=== PATIENT | female | born 1965 | race Caucasian/White ===

== ENCOUNTER → 2021-05-10 10:48 | Outpatient (CLI) | payer BC, SELFPAY ==
--- NOTE | 2021-05-10 | DI.MG.S_ITS ---
BILATERAL DIGITAL SCREENING MAMMOGRAM 3D/2D WITH CAD: 05/10/2021 CLINICAL: Routine screening. Comparison is made to exams dated: 01/20/2020 mammogram, 01/29/2019 mammogram, and 12/25/2017 mammogram - outside location. There are scattered fibroglandular elements in both breasts. Current study was also evaluated with a Computer Aided Detection (CAD) system. There is a possible developing high density asymmetry in the right breast middle depth superior region seen on the mediolateral oblique view only. This is more prominent. There is a developing irregular equal density asymmetry in the left breast at 1 o'clock middle depth. No other significant masses or calcifications are seen in either breast. IMPRESSION: INCOMPLETE: NEEDS ADDITIONAL IMAGING EVALUATION The possible developing high density asymmetry in the right breast middle depth superior region seen on the mediolateral oblique view only is indeterminate. Additional views with possible ultrasound are recommended. The developing irregular equal density asymmetry in the left breast at 1 o'clock middle depth is indeterminate. Additional views with possible ultrasound are recommended. This exam was interpreted at Station ID: [id number]. NOTE: For mammograms, a report in lay terms will be sent to the patient. Approximately 15% of breast malignancies will not be visualized mammographically. In the management of a palpable breast mass, a negative mammogram must not discourage biopsy of a clinically suspicious lesion. Electronically Signed By: Meri zavala/mame:05/10/2021 13:27:08 copy to: Brianda Obrien copy to: Brianda Michelle, [facility], ph: [phone], fax: [phone] letter sent: Additional Imaging Needed ACR BI-RADS Category 0: Incomplete 3340F
--- NOTE | 2021-05-10 11:08 | DI.CT.S_ITS ---
PROCEDURE: CT SINUS SCREEN WO CON INDICATIONS: Chronic frontal sinusitis TECHNIQUE: Noncontrast 3.0 mm axial images acquired from the frontal sinuses to the mid-sella, with coronal and sagittal reformats. For radiation dose reduction, the following was used: automated exposure control, adjustment of mA and/or kV according to patient size. COMPARISON: None. FINDINGS: Image quality: Excellent. Sinuses: There is minimal scattered mucosal thickening within the bilateral maxillary, sphenoid and ethmoid sinuses. Frontal sinuses are clear. No fluid levels are identified. Ostiomeatal Complexes: Ostiomeatal complexes are patent. No Thomas cells. Miscellaneous: Visualized intra-orbital contents are normal. No dawn bullosa or paradoxical turbinate curvature. No nasal septal deviation. IMPRESSION: 1. Minimal scattered mucosal thickening as above without fluid levels. Dictated by: Rena Knox M.D. on 05/10/2021 at 16:38 Approved by: Rena Knox M.D. on 05/10/2021 at 16:40
== END ==
PROVIDERS: PCP Physician Assistant; Referring Provider Family Medicine; Visit Provider Family Medicine
DX: Z12.31 Encounter for screening mammogram for malignant neoplasm of breast (principal); J32.1 Chronic frontal sinusitis
CPT/HCPCS: 70486; 77063; 77067

== ENCOUNTER → 2021-06-16 12:00 | Outpatient (CLI) | payer BC, SELFPAY ==
--- NOTE | 2021-06-16 12:02 | DI.US.S_ITS ---
ULTRASOUND OF RIGHT BREAST: 06/16/2021 CLINICAL: Patient returns today to evaluate a focal asymmetry in the right breast. Comparison is made to exams dated: 06/16/2021 mammogram, 05/10/2021 mammogram - [facility], 04/08/2020 ultrasound, 01/20/2020 mammogram, 02/06/2019 ultrasound, and 01/29/2019 mammogram - outside location. Color flow and real-time ultrasound of the right breast were performed. Roy scale images of the real-time examination were reviewed. There is an incidental 0.4 cm oval cyst in the right breast at 12 o'clock middle depth 3 cm from the nipple. This oval cyst is anechoic. Color flow imaging demonstrates that there is no vascularity present. Otherwise, no sonographic abnormalities seen in the right breast. IMPRESSION: BENIGN There is no sonographic evidence of malignancy. The incidental 0.4 cm oval simple cyst in the right breast is benign. A 1 year screening mammogram is recommended. Findings and recommendations were conveyed to the patient during today's evaluation. This exam was interpreted at Station ID: [id number]. Electronically Signed By: Sky Jack M.D. aty/:06/16/2021 14:54:14 copy to: Brianda Obrien copy to: Brianda Michelle, [facility], ph: [phone], fax: [phone] letter sent: Normal Exam Ultrasound BI-RADS: 2 Benign
--- NOTE | 2021-06-16 12:02 | DI.US.S_ITS ---
ULTRASOUND OF LEFT BREAST: 06/16/2021 CLINICAL: Patient returns today to evaluate a focal asymmetry in the left breast. Comparison is made to exams dated: 06/16/2021 mammogram, 05/10/2021 mammogram - [facility], 04/08/2020 ultrasound, 01/20/2020 mammogram, 02/06/2019 ultrasound, and 01/29/2019 mammogram - outside location. Color flow and real-time ultrasound of the left breast were performed. Roy scale images of the real-time examination were reviewed. There is an incidental oval cyst in the left breast at 12 o'clock middle depth measuring 0.4cm in size. This oval cyst is hypoechoic. Color flow imaging demonstrates that there is no vascularity present. Otherwise, no sonographic abnormalities seen in the left breast. IMPRESSION: BENIGN There is no sonographic evidence of malignancy. The incidental simple oval cyst in the left breast is benign. A 1 year screening mammogram is recommended. Findings and recommendations were conveyed to the patient during today's evaluation. This exam was interpreted at Station ID: [id number]. Electronically Signed By: Sky Jack M.D. aty/:06/16/2021 14:51:56 Entry: - 06/19/2021 08:37:35 copy to: Brianda Obrien copy to: Brianda Michelle, [facility], ph: [phone], fax: [phone] Ultrasound BI-RADS: 2 Benign
--- NOTE | 2021-06-16 12:02 | DI.MG.S_ITS ---
BILATERAL DIGITAL DIAGNOSTIC MAMMOGRAM 3D/2D WITH ADDITIONAL VIEWS: 06/16/2021 CLINICAL: Additional evaluation requested from prior study. Comparison is made to exams dated: 05/10/2021 mammogram - [facility], 01/20/2020 mammogram, and 01/29/2019 mammogram - outside location. There are scattered fibroglandular elements in both breasts. The possible developing high density asymmetry in the right breast middle depth superior region seen on the mediolateral oblique view only is not reproduced and presumably represented superimposed breast tissue. The developing irregular equal density asymmetry in the left breast at 1 o'clock middle depth is no longer seen, dispersing with additional views and is consistent with summation artifact. No other significant masses or calcifications are seen in either breast. IMPRESSION: INCOMPLETE: NEEDS ADDITIONAL IMAGING EVALUATION The previously described right breast asymmetry disperses with additional views and is consistent with summation artifact. The previously described left focal asymmetry disperses with additional views and is also consistent with summation artifact. However, given increased density of fibroglandular tissue in these areas, an ultrasound of the bilateral breasts is recommended to confirm no underlying suspicious findings. This is scheduled to immediately follow this exam. This exam was interpreted at Station ID: [id number]. NOTE: For mammograms, a report in lay terms will be sent to the patient. Approximately 15% of breast malignancies will not be visualized mammographically. In the management of a palpable breast mass, a negative mammogram must not discourage biopsy of a clinically suspicious lesion. Electronically Signed By: Sky Jack M.D. aty/:06/16/2021 14:49:04 copy to: Brianda Obrien copy to: Brianda Michelle, [facility], ph: [phone], fax: [phone] ACR BI-RADS Category 0: Incomplete [id number]
== END ==
PROVIDERS: PCP Physician Assistant; Referring Provider Physician Assistant; Visit Provider Physician Assistant
DX: R92.8 Other abnormal and inconclusive findings on diagnostic imaging of breast (principal); N60.02 Solitary cyst of left breast; N60.01 Solitary cyst of right breast
CPT/HCPCS: 76642; 77066; G0279

== ENCOUNTER → 2021-06-21 10:32 | Outpatient (CLI) | payer BC, SELFPAY ==
[2021-06-21 19:40] LABS: Cholesterol 142 mg/dL (140-199); HDL Cholesterol 43 mg/dL (40-60); LDL Cholesterol Calculated 72 mg/dL (<100); Triglycerides 134 mg/dL (35-150)
== END ==
PROVIDERS: PCP Physician Assistant; Visit Provider Physician Assistant
DX: Z13.220 Encounter for screening for lipoid disorders (principal)
CPT/HCPCS: 80061

== ENCOUNTER → 2022-02-02 15:49 | Outpatient (CLI) | payer OTHER, SELFPAY ==
[2022-02-05 19:56] LABS: Free T3, Triiodothyronine Free 3.16 pg/mL (2.77-5.27)
[2022-02-05 20:10] LABS: TSH w/ Reflex to FT4 0.55 uIU/mL (0.47-4.68)
[2022-02-05 20:20] LABS: COVID19 - ORCAS (NP or Nasal) Negative (Negative)
== END ==
PROVIDERS: PCP Physician Assistant; Visit Provider Physician Assistant Medical
DX: Z20.822 Contact with and (suspected) exposure to COVID-19; R22.1 Localized swelling, mass and lump, neck
CPT/HCPCS: 84443; 84481; U0003

== ENCOUNTER → 2022-07-03 10:33 | Outpatient (CLI) | payer OTHER, SELFPAY ==
--- NOTE | 2022-07-03 10:35 | DI.US.S_ITS ---
PROCEDURE: US SOFT TISSUE HEAD AND NECK INDICATIONS: anterior neck fullness TECHNIQUE: Real-time scanning was performed of the neck region of interest, with image documentation. COMPARISON: None. FINDINGS: Scanning is performed at the areas of clinical concern. No masses are seen. Several small lymph nodes are seen within the right submandibular region measuring 7 x 6 x 7 mm and 5 x 4 x 4 mm, respectively. IMPRESSION: Lymph nodes are seen, which demonstrate normal size. No masses are seen. Dictated by: Primitivo Encinas M.D. on 07/03/2022 at 11:04 Approved by: Primitivo Encinas M.D. on 07/03/2022 at 11:04
== END ==
PROVIDERS: PCP Physician Assistant; Referring Provider Physician Assistant; Visit Provider Physician Assistant
DX: R22.1 Localized swelling, mass and lump, neck (principal)
CPT/HCPCS: 76536

== ENCOUNTER → 2022-10-15 12:01 | Outpatient (CLI) | payer OTHER, SELFPAY ==
[2022-10-15 19:49] LABS: Add Manual Diff / Slide Review NO; Basophils Absolute Auto 0 /uL (0-100); Basophils Percent Auto 0.5 % (0-2); Eosinophils Absolute Auto 300 /uL (0-450); Eosinophils Percent Auto 3.4 % (2-4); Hematocrit 40.5 % (36-46); Hemoglobin 13.7 g/dL (12.0-16.0); Lymphocytes Absolute Auto 2500 /uL (1100-4500); Lymphocytes Percent Auto 33.8 % (25-40); Mean Corpuscular HGB Conc 33.9 % (30-36); Mean Corpuscular Hemoglobin 30.6 PG (26-34); Mean Corpuscular Volume 90.3 fL (80-100); Monocytes Absolute Auto 700 /uL (0-900); Monocytes Percent Auto 9.6 % (3-14); Neutrophils Absolute Auto 3900 /uL (1500-7000); Neutrophils Percent Auto 52.7 % (50-75); Platelet Count 316 X10^3/uL (150-400); Red Blood Cell Count 4.48 X10^6/uL (4.0-5.2); White Blood Cell Count 7.5 X10^3/uL (4.5-11.0)
[2022-10-15 20:07] LABS: Alanine Aminotransferase 33 IU/L (<35); Albumin 4.9 g/dL (3.5-5.0); Albumin Globulin Ratio 1.5 (1.0-2.8); Alkaline Phosphatase 76 U/L (38-126); Aspartate Aminotransferase 35 IU/L (14-36); BUN Creatinine Ratio 23.6 (6-22); Bilirubin Total 0.6 mg/dL (0.2-1.3); Blood Urea Nitrogen 17 mg/dL (7-17); Calcium 9.5 mg/dL (8.4-10.2); Carbon Dioxide 25 mmol/L (22-32); Chloride 103 mmol/L (98-107); Cholesterol 133 mg/dL (140-199); Estimated Glomerular Filt Rate > 60 mL/min (>60); Globulin 3.2 g/dL (1.7-4.1); Glucose 84 mg/dL (70-100); HDL Cholesterol 44 mg/dL (40-60); HEMOLYSIS 26 (0-50); LDL Cholesterol Calculated 70 mg/dL (<100); Potassium 5.1 mmol/L (3.4-5.1); Sodium 140 mmol/L (137-145); Total Protein 8.1 g/dL (6.3-8.2); Triglycerides 94 mg/dL (35-150)
[2022-10-15 20:39] LABS: TSH w/ Reflex to FT4 2.25 uIU/mL (0.47-4.68)
== END ==
PROVIDERS: PCP Physician Assistant; Visit Provider Physician Assistant
DX: Z13.6 Encounter for screening for cardiovascular disorders (principal); I10 Essential (primary) hypertension; R63.5 Abnormal weight gain
CPT/HCPCS: 80053; 80061; 84443; 85025

== ENCOUNTER → 2022-11-29 10:44 | Outpatient (CLI) | payer OTHER, SELFPAY ==
--- NOTE | 2022-11-29 10:46 | DI.MG.S_ITS ---
BILATERAL DIGITAL SCREENING MAMMOGRAM 3D/2D WITH CAD: 11/29/2022 CLINICAL: Routine screening. Comparison is made to exams dated: 06/16/2021 ultrasound, 06/16/2021 mammogram, 05/10/2021 mammogram, and 06/16/2021 ultrasound - [facility]. There are scattered areas of fibroglandular density in both breasts (category b / 25%-50% glandular tissue). Current study was also evaluated with a Computer Aided Detection (CAD) system. There is a possible asymmetry in the left breast middle depth central to the nipple seen on the craniocaudal view only. There is architectural distortion associated with the asymmetry. No other significant masses, calcifications, or other findings are seen in either breast. IMPRESSION: INCOMPLETE: NEEDS ADDITIONAL IMAGING EVALUATION The possible asymmetry in the left breast is indeterminate. Additional views with possible ultrasound are recommended. Based on the Tyrer Cuzick model (a risk assessment model) the patient's lifetime risk is 9.2% and her 10 year risk is 3.6%. According to the ACR, ACS, and NCCN guidelines, an annual breast MRI exam along with mammogram is recommended if the patient's lifetime risk is 20% or greater. This exam was interpreted at Station ID: [id number]. NOTE: For mammograms, a report in lay terms will be sent to the patient. Approximately 15% of breast malignancies will not be visualized mammographically. In the management of a palpable breast mass, a negative mammogram must not discourage biopsy of a clinically suspicious lesion. Electronically Signed By: Sai Newsome M.D., jr/mame:11/29/2022 12:15:01 copy to: Brianda Obrien copy to: Brianda Michelle, [facility], ph: [phone], fax: [phone] letter sent: Additional Imaging Needed ACR BI-RADS Category 0: Incomplete 3340F
== END ==
PROVIDERS: PCP Physician Assistant; Referring Provider Physician Assistant; Visit Provider Physician Assistant
DX: Z12.31 Encounter for screening mammogram for malignant neoplasm of breast (principal)
CPT/HCPCS: 77063; 77067

== ENCOUNTER → 2022-12-27 11:52 | Outpatient (CLI) | payer OTHER, SELFPAY ==
--- NOTE | 2022-12-27 11:55 | DI.US.S_ITS ---
LIMITED ULTRASOUND OF LEFT BREAST: 12/27/2022 CLINICAL: ADD VIEWS LEFT BREAST. Comparison is made to exams dated: 12/27/2022 mammogram, 11/29/2022 mammogram, and 06/16/2021 [facility]. Color flow ultrasound of the left breast 1 o'clock region was performed. Roy scale images of the real-time examination were reviewed. No significant abnormalities were seen sonographically in the left breast. Specifically, no finding to correspond to the patient's screening mammographic abnormality. IMPRESSION: PROBABLY BENIGN No sonographic correlate to mammographic finding. A follow-up left mammogram and possible ultrasound in 6 months is recommended to demonstratemammographic stablility of the left breast. Findings and recommendations were conveyed to the patient at time of exam. This exam was interpreted at Station ID: [id number]. Electronically Signed By: Meri zavala/:12/27/2022 12:52:10 copy to: Brianda Obrien copy to: Brianda Michelle, [facility], ph: [phone], fax: [phone] letter sent: Followup Recommended Ultrasound BI-RADS: 3 Probably benign
--- NOTE | 2022-12-27 11:55 | DI.MG.S_ITS ---
UNILATERAL LEFT DIGITAL DIAGNOSTIC MAMMOGRAM 3D/2D WITH ADDITIONAL VIEWS: 12/27/2022 CLINICAL: Additional evaluation requested from prior study. Comparison is made to exams dated: 11/29/2022 mammogram, 06/16/2021 mammogram, and 05/10/2021 mammogram - [facility]. There are scattered areas of fibroglandular density in the left breast (category b / 25%-50% glandular tissue). There is a possible 9 mm irregular asymmetry with a spiculated margin in the left breast at 1 o'clock posterior depth. This is seen in additional views. There is possible architectural distortion associated with the asymmetry. No other significant masses or calcifications are seen in the breast. IMPRESSION: INCOMPLETE: NEEDS ADDITIONAL IMAGING EVALUATION The possible 9 mm irregular asymmetry in the left breast is confirmed with special views, but remains indeterminate. An ultrasound is recommended. This was performed immediately following this exam. Based on the Tyrer Cuzick model (a risk assessment model) the patient's lifetime risk is 9.2% and her 10 year risk is 3.6%. According to the ACR, ACS, and NCCN guidelines, an annual breast MRI exam along with mammogram is recommended if the patient's lifetime risk is 20% or greater. This exam was interpreted at Station ID: [id number]. NOTE: For mammograms, a report in lay terms will be sent to the patient. Approximately 15% of breast malignancies will not be visualized mammographically. In the management of a palpable breast mass, a negative mammogram must not discourage biopsy of a clinically suspicious lesion. Electronically Signed By: Meri zavala/:12/27/2022 12:16:05 copy to: Brianda Obrien copy to: Brianda Michelle, [facility], ph: [phone], fax: [phone] ACR BI-RADS Category 0: Incomplete [id number]
== END ==
PROVIDERS: PCP Physician Assistant; Referring Provider Physician Assistant; Visit Provider Physician Assistant
DX: R92.8 Other abnormal and inconclusive findings on diagnostic imaging of breast (principal)
CPT/HCPCS: 76642; 77065; G0279

== ENCOUNTER → 2023-06-26 11:15 | Outpatient (CLI) | payer OTHER, SELFPAY ==
--- NOTE | 2023-06-26 11:16 | DI.MG.S_ITS ---
UNILATERAL LEFT DIGITAL DIAGNOSTIC MAMMOGRAM 3D/2D SHORT-TERM FOLLOW-UP: 06/26/2023 CLINICAL: Short term follow up for the left breast. Comparison is made to exams dated: 12/27/2022 mammogram, 11/29/2022 mammogram, 06/16/2021 mammogram, and 05/10/2021 mammogram - [facility]. There are scattered areas of fibroglandular density in the left breast (category b / 25%-50% glandular tissue). The asymmetry in the left breast middle depth central to the nipple seen on the prior screening craniocaudal view only is not seen in additional views. No other significant masses or calcifications are seen in the breast. IMPRESSION: BENIGN The left breast asymmetry seen on the prior screening mammogram likely respresents superimposed fibroglandular tissue and is benign. There is no mammographic evidence of malignancy. Return to annual mammogram screening schedule is recommended. Based on the Tyrer Cuzick model (a risk assessment model) the patient's lifetime risk is 9.2% and her 10 year risk is 3.6%. According to the ACR, ACS, and NCCN guidelines, an annual breast MRI exam along with mammogram is recommended if the patient's lifetime risk is 20% or greater. This exam was interpreted at Station ID: [id number]. NOTE: For mammograms, a report in lay terms will be sent to the patient. Approximately 15% of breast malignancies will not be visualized mammographically. In the management of a palpable breast mass, a negative mammogram must not discourage biopsy of a clinically suspicious lesion. Electronically Signed By: Amelie Damico M.D. lk/:06/26/2023 11:49:54 copy to: Brianda Obrien copy to: Brianda Michelle, [facility], ph: [phone], fax: [phone] letter sent: Normal Exam ACR BI-RADS Category 2: Benign Finding(s) 3344O
== END ==
PROVIDERS: PCP Physician Assistant; Referring Provider Physician Assistant; Visit Provider Physician Assistant
DX: R92.8 Other abnormal and inconclusive findings on diagnostic imaging of breast (principal)
CPT/HCPCS: 77065; G0279

== ENCOUNTER → 2023-07-09 12:49 | Outpatient (CLI) | payer OTHER, SELFPAY | PROVIDERS: PCP Physician Assistant; Visit Provider Physician Assistant | DX: R30.0 Dysuria (principal) | CPT/HCPCS: 87086 ==

== ENCOUNTER 2023-07-16 10:20 | Emergency (ER) | payer OTHER, SELFPAY ==
[2023-07-16 10:23] VITALS: PULSE 58; O2SAT 99
[2023-07-16 10:24] VITALS: BP 131/60; PULSE 60; O2SAT 99
[2023-07-16 10:30] VITALS: BP 125/59; PULSE 63; O2SAT 98
[2023-07-16 10:33] VITALS: BP 125/59; PULSE 60; RESP 18; TEMP 36.7; O2SAT 99; BMI 28.7
--- NOTE | 2023-07-16 10:36 | DI.RAD.S_ITS ---
PROCEDURE: XR LUMBAR SPINE 2-3V INDICATIONS: FALL WITH LOW BACK PAIN TECHNIQUE: 3 views of the lumbar spine were acquired. COMPARISON: None. FINDINGS: Bones: 5 [id number] vertebrae are present. There is ill-defined linear opacity along the superior endplate at L5. No vertebral body compression fractures. No suspicious bony lesions. Soft tissues: Overlying bowel gas pattern is normal. No suspicious soft tissue calcifications. IMPRESSION: Ill-defined L5 superior endplate linear opacity. Fracture cannot be excluded. If concern persists, CT is recommended. Dictated by: Rena Knox M.D. on 07/16/2023 at 11:57 Approved by: Rena Knox M.D. on 07/16/2023 at 11:58
--- NOTE | 2023-07-16 10:55 | DI.RAD.S_ITS ---
PROCEDURE: XR SACRUM COCCYX MIN 2V INDICATIONS: FALL WITH LOW BACK AND TAILBONE PAIN TECHNIQUE: 3 views of the sacrum and coccyx acquired. COMPARISON: None. FINDINGS: Bones: Superior endplate L5 lucency. No suspicious bony lesions. Soft tissues: Visualized bowel gas pattern is normal. No suspicious soft tissue densities. IMPRESSION: Superior L5 endplate lucency. Fracture cannot be excluded. Please see x-ray lumbar spine for further details. Dictated by: Rena Knox M.D. on 07/16/2023 at 11:58 Approved by: Rena Knox M.D. on 07/16/2023 at 11:59
--- NOTE | 2023-07-16 11:17 | ED_ITS ---
HPI - Fall <Vivian Escobedo PA-C - Last Filed: 07/16/23 15:33> General Chief Complaint: Fall Stated Complaint: GLF Time Seen by Provider: 07/16/23 11:00 Source: patient and EMS Mode of arrival: EMS History of Present Illness HPI Narrative: 57-year-old female with past medical history hypothyroidism, hypertension, hyperlipidemia presents to the ED status post a mechanical fall sustained just prior to arrival. Patient states that she suffered a mechanical fall when she tripped on an open [employer] former that she did not notice was open. Patient states that she fell backwards, landing on her lower back and sacrum. Patient states she was able to stand up by herself, although it was very painful to walk back to the couch. Patient states that the pain got progressively worse, causing her to present to the ED for further evaluation. Patient denies any head strikes, loss of consciousness. Patient denies feeling lightheaded or dizzy or otherwise unwell leading to the fall. Patient denies numbness, tingling, weakness. Patient states that the pain is localized to the lower back, sacrum, does not radiate. Patient denies urinary retention, saddle paresthesias, urinary incontinence, bowel incontinence. Related Data Home Medications Medication Instructions Recorded Confirmed estradiol 0.01% (0.1 mg/gram) 1 g vaginal 2XW 06/05/21 07/09/23 vaginal cream loratadine-pseudoephedrine ER 10 1 tab PO DAILY PRN 06/20/21 07/09/23 mg-240 mg tablet,extended [id number] (Claritin-D 24 Hour) Previous Rx's Medication Instructions Recorded levothyroxine 75 mcg tablet 75 mcg PO .Q AM #14 tabs 09/24/22 rosuvastatin 10 mg tablet See Rx Instructions .Route 10/24/22 .COMPLEX #90 tabs prochlorperazine maleate 5 mg 5 mg PO QID PRN nausea and 11/05/22 tablet (Compazine) vomiting #20 tabs sodium,potassium,mag sulfates 17.5 See Rx Instructions PO .COMPLEX 11/22/22 gram-3.13 gram-1.6 gram oral soln #354 mL (Suprep Bowel Prep Kit) amlodipine 10 mg-benazepril 20 mg See Rx Instructions .Route 01/22/23 capsule .COMPLEX #90 caps prednisone 10 mg tablet See Rx Instructions .Route 04/24/23 .COMPLEX #5 tabs famciclovir 500 mg tablet See Rx Instructions PO .COMPLEX #3 05/15/23 tabs Allergies Allergy/AdvReac Type Severity Reaction Status Date / Time No Known Drug Allergies Allergy Verified 07/09/23 12:53 Review of Systems <Vivian Escobedo PA-C - Last Filed: 07/16/23 15:33> Review of Systems ROS Unobtainable: All systems reviewed & are unremarkable except as noted in HPI and below Constitutional Constitutional: Denies chills, Denies fatigue, Denies fever(s), Denies frequent falls, Denies lethargy and Denies weakness Eyes Eyes: Denies change in vision, Denies eye discharge, Denies irritation and Denies loss of vision ENT Ears, Nose, Mouth, and Throat: Denies change in voice, Denies dizziness, Denies neck pain, Denies sore throat and Denies throat swelling Cardiovascular Cardiovascular: Denies chest pain, Denies irregular heart rhythm, Denies lightheadedness, Denies palpitations, Denies dyspnea, Denies dyspnea on exertion and Denies orthopnea Respiratory Respiratory: Denies cough, Denies dyspnea, Denies dyspnea on exertion and Denies wheezing Gastrointestinal Gastrointestinal: Denies abdominal pain, Denies change in bowel habits, Denies diarrhea, Denies nausea and Denies vomiting Genitourinary Genitourinary: Denies hematuria, Denies flank pain, Denies urinary incontinence and Denies urinary urgency Musculoskeletal Musculoskeletal: Reports back pain, Denies muscle weakness, Denies neck pain, Denies numbness and Denies tingling Integumentary/Breasts Skin/Breast: Denies pruritus, Denies erythema, Denies rash and Denies wounds Neurologic Neurologic: Denies behavioral changes, Denies confusion, Denies dizziness, Denies frequent falls, Denies loss of vision, Denies numbness, Denies tingling and Denies weakness Psychiatric Psychiatric: Denies anxiety, Denies behavioral changes, Denies confusion, Denies depression, Denies homicidal ideation and Denies suicidal ideation Endocrine Endocrine: Denies fatigue, Denies flushing and Denies palpitations Hematologic/Lymphatic Hematologic/Lymphatic: Denies easy bruising Allergic/Immunologic Allergic/Immunologic: Denies urticaria, Denies throat swelling and Denies wheezing Patient History <Vivian Escobedo PA-C - Last Filed: 07/16/23 15:33> Medical History Encounter for immunization Social History Smoking Status: Former smoker Smoking Status: Former smoker alcohol intake frequency: holidays/special occasions only Substance Use Type: marijuana Exam <Vivian Escobedo PA-C - Last Filed: 07/16/23 15:33> Narrative Exam Narrative: Const General:?cooperative, healthy appearing and comfortable [facility] Head:?normal to inspection Ears:?hearing grossly normal bilaterally Nose:?external nose normal Face and sinus:?normal facial exam and sinuses nontender Mouth:?oral mucosae normal Throat:?posterior oropharynx normal Eyes General:?appearance normal, both eyes and all related structures Neck Neck:?normal visual inspection and no lymphadenopathy noted Resp Effort & Inspection:?normal respiratory effort Auscultation:?clear to auscultation bilaterally Cardio Rate:?regular rate Rhythm:?regular rhythm Musculoskeletal There is midline tenderness to palpation, right-sided paraspinal tenderness to palpation of the lower back. No bruising. Strength and sensation is intact. There is full range of motion. Patient is neurovascularly intact. Neuro General:?patient alert, patient awake and patient oriented x3 Initial Vital Signs Initial Vital Signs: Vital Signs Pulse Rate 58 L 07/16/23 10:23 Pulse Oximetry 99 07/16/23 10:23 <Marlee Plummer DO - Last Filed: 07/23/23 19:19> Initial Vital Signs Initial Vital Signs: Vital Signs Pulse Rate 58 L 07/16/23 10:23 Pulse Oximetry 99 07/16/23 10:23 Course <Vivian Escobedo PA-C - Last Filed: 07/16/23 15:33> Orders Ordered: Discontinued Medications Acetaminophen (Acetaminophen 325 Mg Tablet) 975 mg PO NOW ONE Stop: 07/16/23 11:29 Last Admin: 07/16/23 11:42 Dose: 975 mg Documented By: Cyclobenzaprine HCl (Cyclobenzaprine 10 Mg Tablet) 10 mg PO NOW ONE Stop: 07/16/23 11:29 Last Admin: 07/16/23 11:43 Dose: 10 mg Documented By: Ketorolac Tromethamine (Ketorolac 30 Mg/Ml Vial) 30 mg IM NOW ONE Stop: 07/16/23 11:29 Last Admin: 07/16/23 11:42 Dose: 30 mg Documented By: Lidocaine (Lidocaine Patch 1 Each Adh..Patch) 1 each TOP NOW ONE Stop: 07/16/23 11:29 Last Admin: 07/16/23 11:42 Dose: 1 each Documented By: Vital Signs Vital signs: Vital Signs - 8 hr 07/16/23 10:33 07/16/23 10:23 07/16/23 10:24 Temperature 98.1 F Pulse Rate 60 58 L Respiratory Rate 18 Blood Pressure 125/59 L 131/60 Pulse Oximetry 99 99 Oxygen Delivery Method Room Air 07/16/23 10:24 07/16/23 10:30 07/16/23 10:30 Temperature Pulse Rate 60 63 Respiratory Rate Blood Pressure 125/59 L Pulse Oximetry 99 98 Oxygen Delivery Method 07/16/23 14:13 07/16/23 14:14 07/16/23 14:14 Temperature Pulse Rate 61 59 L Respiratory Rate Blood Pressure 129/65 Pulse Oximetry 93 97 Oxygen Delivery Method <Marlee Plummer, - Last Filed: 07/23/23 19:19> Orders Ordered: Discontinued Medications Acetaminophen (Acetaminophen 325 Mg Tablet) 975 mg PO NOW ONE Stop: 07/16/23 11:29 Last Admin: 07/16/23 11:42 Dose: 975 mg Documented By: Cyclobenzaprine HCl (Cyclobenzaprine 10 Mg Tablet) 10 mg PO NOW ONE Stop: 07/16/23 11:29 Last Admin: 07/16/23 11:43 Dose: 10 mg Documented By: Ketorolac Tromethamine (Ketorolac 30 Mg/Ml Vial) 30 mg IM NOW ONE Stop: 07/16/23 11:29 Last Admin: 07/16/23 11:42 Dose: 30 mg Documented By: Lidocaine (Lidocaine Patch 1 Each Adh..Patch) 1 each TOP NOW ONE Stop: 07/16/23 11:29 Last Admin: 07/16/23 11:42 Dose: 1 each Documented By: Vital Signs Vital signs: Vital Signs - 8 hr 07/16/23 10:33 07/16/23 10:23 07/16/23 10:24 Temperature 98.1 F Pulse Rate 60 58 L Respiratory Rate 18 Blood Pressure 125/59 L 131/60 Pulse Oximetry 99 99 Oxygen Delivery Method Room Air 07/16/23 10:24 07/16/23 10:30 07/16/23 10:30 Temperature Pulse Rate 60 63 Respiratory Rate Blood Pressure 125/59 L Pulse Oximetry 99 98 Oxygen Delivery Method 07/16/23 14:13 07/16/23 14:14 07/16/23 14:14 Temperature Pulse Rate 61 59 L Respiratory Rate Blood Pressure 129/65 Pulse Oximetry 93 97 Oxygen Delivery Method MDM - Fall <Vivian Escobedo PA-C - Last Filed: 07/16/23 15:33> Lab Data Labs: Urine Dip Bedside Urine Glucose Negative Bedside Urine Bilirubin - Negative Bedside Urine Ketone - Negative Urine Specific Arjay 1.000 Bedside Urine Occult Blood - Negative Bedside Urine pH 8.5 Bedside Urine Protein - Negative Bedside Urine Urobilinogen - Negative Bedside Urine Nitrite - Negative Bedside Urine Leukocytes - Negative Esterase MDM Narrative Medical decision making narrative: 57-year-old female with past medical history hypothyroidism, hypertension, hyperlipidemia presents to the ED status post a mechanical fall sustained just prior to arrival. Concern for fracture/dislocation versus musculoskeletal sprain/strain. Will obtain x-rays. Will give ketorolac, lidocaine patch, Flexeril. Will reassess. Patient's symptoms improved with medications. Lumbar x-ray showed possible ill- defined L5 superior endplate linear opacity. A CT scan was obtained for further characterization and it showed no fractures/dislocations. Discussed findings with patient. Recommend continued use of lidocaine patches, Tylenol, ibuprofen, Flexeril. Recommend follow-up with PCP as soon as possible. ED return precautions were discussed with patient. Patient verbalized understanding. Medical records reviewed: Yes <Marlee Plummer DO - Last Filed: 07/23/23 19:19> Lab Data Labs: Urine Dip Bedside Urine Glucose Negative Bedside Urine Bilirubin - Negative Bedside Urine Ketone - Negative Urine Specific Arjay 1.000 Bedside Urine Occult Blood - Negative Bedside Urine pH 8.5 Bedside Urine Protein - Negative Bedside Urine Urobilinogen - Negative Bedside Urine Nitrite - Negative Bedside Urine Leukocytes - Negative Esterase Discharge Plan Departure Patient Disposition: Home Clinical Impression: Back pain Instructions: DI for Back Strain or Sprain Activity Restrictions/Additional Instructions: You were evaluated in the ED today for a fall and lower back pain. No fracture or dislocation was identified on CT. Your symptoms are likely due to a lower back sprain/strain/contusion. You may continue to take Flexeril which is a muscle relaxant, apply lidocaine patches, take Tylenol and ibuprofen for symptom relief. Please follow-up with your PCP as soon as possible. Return to the ED if you have worsening symptoms, numbness, tingling, weakness, urinary difficulties. Prescriptions: No Action levothyroxine 75 mcg tablet 75 mcg PO .Q AM MDD 75 mcg Qty: 14 0RF rosuvastatin 10 mg tablet See Rx Instructions .ROUTE .COMPLEX Qty: 90 3RF Dose Instruction: TAKE 1 TABLET DAILY Rx Instructions: TAKE 1 TABLET DAILY sodium,potassium,mag sulfates [Suprep Bowel Prep Kit] 17.5-3.13-1.6 gram recon soln See Rx Instructions PO .COMPLEX Qty: 354 0RF Rx Instructions: Take as directed by Physician amlodipine-benazepril 10-20 mg capsule See Rx Instructions .ROUTE .COMPLEX Qty: 90 3RF Dose Instruction: TAKE 1 CAPSULE DAILY Rx Instructions: TAKE 1 CAPSULE DAILY prochlorperazine maleate [Compazine] 5 mg tablet 5 mg PO QID PRN (Reason: nausea and vomiting) Qty: 20 0RF estradiol 0.01 % (0.1 mg/gram) cream 1 g vaginal 2XW loratadine-pseudoephedrine [Claritin-D 24 Hour] 10-240 mg tablet extended release 24 hr 1 tab PO DAILY PRN prednisone 10 mg tablet See Rx Instructions .ROUTE .COMPLEX Qty: 5 0RF Dose Instruction: TAKE ONE TABLET BY MOUTH EVERY DAY IN THE MORNING WITH FOOD AND A FULL GLASS OF WATER Rx Instructions: TAKE ONE TABLET BY MOUTH EVERY DAY IN THE MORNING WITH FOOD AND A FULL GLASS OF WATER famciclovir 500 mg tablet See Rx Instructions PO .COMPLEX MDD 1500 mg Qty: 3 3RF Rx Instructions: 3 tabs orally at once. Take at first sign of cold sore. Referrals: Jeniffer Anthony PA-C [Primary Care Provider] - Stand Alone Forms: Patient Portal/API <Marlee Plummer DO - Last Filed: 07/23/23 19:19> Cosign ED Attending [place] Attestation: I was immediately available in the department for consultation. Documentation has been reviewed.
[2023-07-16] MEDS: LIDOCAINE PATCH 1 EACH ADH..PATCH TOP (11:42)
[2023-07-16] MEDS: ACETAMINOPHEN 325 MG TABLET 975 MG PO (11:42)
[2023-07-16] MEDS: KETOROLAC 30 MG/ML VIAL IM (11:42)
[2023-07-16] MEDS: CYCLOBENZAPRINE 10 MG TABLET PO (11:43)
--- NOTE | 2023-07-16 13:32 | DI.CT.S_ITS ---
PROCEDURE: CT LUMBAR SPINE WO CON INDICATIONS: ?fx TECHNIQUE: Noncontrast 3 mm thick sections acquired from the T12 level to the sacrum. Sagittal and coronal reformats were constructed. For radiation dose reduction, the following was used: automated exposure control. COMPARISON: [facility], CR, XR LUMBAR SPINE 2-3V, 07/16/2023, 10:44. FINDINGS: Image quality: Excellent. Bones: There is trace retrolisthesis of L4 on L5. No acute vertebral body compression fractures. No suspicious lytic or blastic bony lesions. Scleral reactive endplate changes are present at L4-5 with degenerative subchondral cysts. This likely accounts for the appearance on x-ray. Vacuum disc is present at this level. Anterior osteophytes are present at L4 and L5. Soft tissues: No retroperitoneal masses or hematomas. Visualized aorta is normal in caliber. IMPRESSION: Prominent degenerative changes at L4-5 without visualized fracture. Dictated by: Rena Knox M.D. on 07/16/2023 at 15:01 Approved by: Rena Knox M.D. on 07/16/2023 at 15:05
[2023-07-16 14:13] VITALS: PULSE 61; O2SAT 93
[2023-07-16 14:14] VITALS: BP 129/65; PULSE 59; O2SAT 97
== END 2023-07-16 15:31 | disposition home or self-care (01) ==
PROVIDERS: Emergency Provider Student in an Organized Health Care Education/Training Program; PCP Physician Assistant
DX: M54.50 Low back pain, unspecified (principal); W18.30XA Fall on same level, unspecified, initial encounter
CPT/HCPCS: 72100; 72131; 72220; 81003; 96372; 99284; J1885

== ENCOUNTER → 2023-07-30 10:35 | Outpatient (CLI) | payer OTHER, SELFPAY ==
[2023-07-30 21:02] LABS: Add Manual Diff / Slide Review NO; Basophils Absolute Auto 100 /uL (0-100); Basophils Percent Auto 1.5 % (0-2); Eosinophils Absolute Auto 400 /uL (0-450); Eosinophils Percent Auto 5.6 % (2-4); Hematocrit 38.6 % (36-46); Hemoglobin 13.3 g/dL (12.0-16.0); Lymphocytes Absolute Auto 2200 /uL (1100-4500); Lymphocytes Percent Auto 29.3 % (25-40); Mean Corpuscular HGB Conc 34.4 % (30-36); Mean Corpuscular Hemoglobin 30.5 PG (26-34); Mean Corpuscular Volume 88.8 fL (80-100); Monocytes Absolute Auto 700 /uL (0-900); Monocytes Percent Auto 9.4 % (3-14); Neutrophils Absolute Auto 4100 /uL (1500-7000); Neutrophils Percent Auto 54.2 % (50-75); Platelet Count 348 X10^3/uL (150-400); Red Blood Cell Count 4.35 X10^6/uL (4.0-5.2); Red Cell Distribution Width 13.1 % (11.6-14.8); White Blood Cell Count 7.6 X10^3/uL (4.5-11.0)
[2023-07-30 21:26] LABS: Hepatitis B Surface Antigen NEGATIVE s/c (NEGATIVE)
[2023-07-30 21:43] LABS: Hep C Virus Ab w/Reflex Quant NEGATIVE s/c (NEGATIVE)
== END ==
PROVIDERS: PCP Physician Assistant; Visit Provider Physician Assistant
DX: R53.83 Other fatigue (principal); Z11.59 Encounter for screening for other viral diseases; Z86.2 Personal history of diseases of the blood and blood-forming organs and certain disorders involving the immune mechanism
CPT/HCPCS: 85025; 86803; 87340

== ENCOUNTER → 2023-10-24 09:02 | Outpatient (CLI) | payer OTHER, SELFPAY ==
[2023-10-24 21:10] LABS: Add Manual Diff / Slide Review NO; Basophils Absolute Auto 100 /uL (0-100); Basophils Percent Auto 0.9 % (0-2); Eosinophils Absolute Auto 300 /uL (0-450); Eosinophils Percent Auto 3.2 % (2-4); Hematocrit 38.4 % (36-46); Hemoglobin 13.2 g/dL (12.0-16.0); Lymphocytes Absolute Auto 4400 /uL (1100-4500); Lymphocytes Percent Auto 41.7 % (25-40); Mean Corpuscular HGB Conc 34.3 % (30-36); Mean Corpuscular Hemoglobin 30.5 PG (26-34); Mean Corpuscular Volume 88.8 fL (80-100); Monocytes Absolute Auto 1100 /uL (0-900); Monocytes Percent Auto 10.4 % (3-14); Neutrophils Absolute Auto 4600 /uL (1500-7000); Neutrophils Percent Auto 43.8 % (50-75); Platelet Count 321 X10^3/uL (150-400); Red Blood Cell Count 4.32 X10^6/uL (4.0-5.2); Red Cell Distribution Width 13.4 % (11.6-14.8); White Blood Cell Count 10.4 X10^3/uL (4.5-11.0)
[2023-10-24 21:37] LABS: TSH w/ Reflex to FT4 1.23 uIU/mL (0.47-4.68)
[2023-10-24 22:20] LABS: Alanine Aminotransferase 35 IU/L (<35); Albumin 4.3 g/dL (3.5-5.0); Albumin Globulin Ratio 1.5 (1.0-2.8); Alkaline Phosphatase 67 U/L (38-126); Aspartate Aminotransferase 29 IU/L (14-36); BUN Creatinine Ratio 21.4 (6-22); Bilirubin Total 0.7 mg/dL (0.2-1.3); Blood Urea Nitrogen 12 mg/dL (7-17); Calcium 9.5 mg/dL (8.4-10.2); Carbon Dioxide 26 mmol/L (22-32); Chloride 106 mmol/L (98-107); Cholesterol 133 mg/dL (140-199); Estimated Glomerular Filt Rate > 60 mL/min (>60); Globulin 2.9 g/dL (1.7-4.1); Glucose 90 mg/dL (70-100); HDL Cholesterol 42 mg/dL (40-60); HEMOLYSIS < 15 (0-50); LDL Cholesterol Calculated 62 mg/dL (<100); Potassium 3.9 mmol/L (3.4-5.1); Sodium 140 mmol/L (137-145); Total Protein 7.2 g/dL (6.3-8.2); Triglycerides 143 mg/dL (35-150)
== END ==
PROVIDERS: PCP Physician Assistant; Visit Provider Physician Assistant
DX: Z86.2 Personal history of diseases of the blood and blood-forming organs and certain disorders involving the immune mechanism (principal); I10 Essential (primary) hypertension; E03.9 Hypothyroidism, unspecified; E78.00 Pure hypercholesterolemia, unspecified; Z79.899 Other long term (current) drug therapy
CPT/HCPCS: 80053; 80061; 84443; 85025

== ENCOUNTER → 2023-11-26 15:06 | Outpatient (CLI) | payer OTHER, SELFPAY | PROVIDERS: PCP Physician Assistant; Visit Provider Physician Assistant Medical | DX: N39.0 Urinary tract infection, site not specified (principal) | CPT/HCPCS: 87086 ==

== ENCOUNTER → 2024-01-07 12:30 | Outpatient (CLI) | payer OTHER, SELFPAY ==
--- NOTE | 2024-01-07 12:31 | DI.MG.S_ITS ---
BILATERAL DIGITAL SCREENING MAMMOGRAM 3D/2D WITH CAD: 01/07/2024 CLINICAL: Routine screening. Comparison is made to exams dated: 06/26/2023 mammogram, 12/27/2022 mammogram, 11/29/2022 mammogram, 06/16/2021 mammogram, 05/10/2021 mammogram - [facility], and 01/20/2020 mammogram - outside location. There are scattered areas of fibroglandular density in both breasts (category b / 25%-50% glandular tissue). Current study was also evaluated with a Computer Aided Detection (CAD) system. There are benign calcifications in both breasts. No significant masses, calcifications, or other findings are seen in either breast. There has been no significant interval change. IMPRESSION: BENIGN There is no mammographic evidence of malignancy. A 1 year screening mammogram is recommended. Based on the Tyrer Cuzick model (a risk assessment model) the patient's lifetime risk is 9.0% and her 10 year risk is 3.7%. According to the ACR, ACS, and NCCN guidelines, an annual breast MRI exam along with mammogram is recommended if the patient's lifetime risk is 20% or greater. This exam was interpreted at Station ID: [id number]. NOTE: For mammograms, a report in lay terms will be sent to the patient. Approximately 15% of breast malignancies will not be visualized mammographically. In the management of a palpable breast mass, a negative mammogram must not discourage biopsy of a clinically suspicious lesion. Electronically Signed By: Amelie caldera/mame:01/07/2024 17:46:27 copy to: Brianda Obrien copy to: Brianda Michelle, [facility], ph: [phone], fax: [phone] letter sent: Normal Exam ACR BI-RADS Category 2: Benign Finding(s) [id number]
== END ==
LOC: MAMMO 12:30
PROVIDERS: PCP Physician Assistant; Referring Provider Physician Assistant; Visit Provider Physician Assistant
DX: Z12.31 Encounter for screening mammogram for malignant neoplasm of breast (principal); R92.323 Mammographic fibroglandular density, bilateral breasts
CPT/HCPCS: 77063; 77067

== ENCOUNTER → 2024-04-27 10:52 | Outpatient (CLI) | payer OTHER, SELFPAY ==
[2024-04-27 20:29] LABS: BUN Creatinine Ratio 27.1 (6-22); Blood Urea Nitrogen 19 mg/dL (7-17); Estimated Glomerular Filt Rate > 60 mL/min (>60)
== END ==
PROVIDERS: PCP Physician Assistant; Visit Provider Physician Assistant
DX: Z01.812 Encounter for preprocedural laboratory examination (principal)
CPT/HCPCS: 82565; 84520

== ENCOUNTER → 2024-04-28 11:08 | Outpatient (CLI) | payer OTHER, SELFPAY ==
--- NOTE | 2024-04-28 | DI.CT.S_ITS ---
PROCEDURE: CT SINUS W CON INDICATIONS: Chronic vs recurrent sinusitis and sinus pain TECHNIQUE: After the administration of intravenous contrast, 3.0 mm axial images acquired from the frontal sinuses to the mid-sella, with coronal and sagittal reformats. For radiation dose reduction, the following was used: automated exposure control, adjustment of mA and/or kV according to patient size. COMPARISON: None. FINDINGS: Image quality: Excellent. Sinuses: There is diffuse appearance of overall mild to moderate mucosal thickening most prominent in the left maxillary and ethmoid air cells. No fluid levels. Ostiomeatal Complexes: Ostiomeatal complexes are patent. There is mild narrowing bilaterally, left greater than right secondary to mucosal thickening. Miscellaneous: Visualized intra-orbital contents are normal. No dawn bullosa. No nasal septal deviation. IMPRESSION: Overall [id number] scattered areas of mucosal thickening without fluid levels. Mild narrowing of the ostiomeatal complexes secondary to mucosal thickening. Dictated by: Rena Knox M.D. on 04/28/2024 at 16:56 Approved by: Rena Knox M.D. on 04/28/2024 at 16:58
== END ==
PROVIDERS: PCP Physician Assistant; Referring Provider Physician Assistant; Visit Provider Physician Assistant
DX: J32.9 Chronic sinusitis, unspecified (principal)
CPT/HCPCS: 70487; Q9967

== ENCOUNTER → 2024-11-26 09:02 | Outpatient (CLI) | payer OTHER, SELFPAY ==
[2024-11-26 20:07] LABS: Add Manual Diff / Slide Review NO; Basophils Absolute Auto 0 /uL (0-100); Basophils Percent Auto 0.6 % (0-2); Eosinophils Absolute Auto 500 /uL (0-450); Eosinophils Percent Auto 6.3 % (2-4); Hematocrit 41.6 % (36-46); Lymphocytes Absolute Auto 2900 /uL (1100-4500); Lymphocytes Percent Auto 38.7 % (25-40); Mean Corpuscular HGB Conc 33.8 % (30-36); Mean Corpuscular Hemoglobin 30.9 PG (26-34); Mean Corpuscular Volume 91.4 fL (80-100); Monocytes Absolute Auto 700 /uL (0-900); Monocytes Percent Auto 9.9 % (3-14); Neutrophils Absolute Auto 3300 /uL (1500-7000); Neutrophils Percent Auto 44.5 % (50-75); Platelet Count 319 X10^3/uL (150-400); Red Blood Cell Count 4.55 X10^6/uL (4.0-5.2); Red Cell Distribution Width 13.1 % (11.6-14.8); White Blood Cell Count 7.5 X10^3/uL (4.5-11.0)
[2024-11-26 20:10] LABS: Alanine Aminotransferase 32 IU/L (<35); Albumin 4.5 g/dL (3.5-5.0); Albumin Globulin Ratio 1.5 (1.0-2.8); Alkaline Phosphatase 85 U/L (38-126); Aspartate Aminotransferase 32 IU/L (14-36); BUN Creatinine Ratio 17.4 (6-22); Bilirubin Total 0.8 mg/dL (0.2-1.3); Blood Urea Nitrogen 12 mg/dL (7-17); Calcium 9.6 mg/dL (8.4-10.2); Carbon Dioxide 27 mmol/L (22-32); Chloride 105 mmol/L (98-107); Cholesterol 135 mg/dL (140-199); Estimated Glomerular Filt Rate > 60 mL/min (>60); Glucose 93 mg/dL (80-110); HDL Cholesterol 47 mg/dL (40-60); HEMOLYSIS < 15 (0-50); LDL Cholesterol Calculated 62 mg/dL (<100); Sodium 140 mmol/L (137-145); Total Protein 7.5 g/dL (6.3-8.2); Triglycerides 129 mg/dL (35-150)
[2024-11-26 20:41] LABS: TSH w/ Reflex to FT4 1.73 uIU/mL (0.47-4.68)
[2024-11-27 19:35] LABS: HIV 1 & 2 Ab/Ag 4th Gen Combo NEGATIVE (NEGATIVE)
== END ==
PROVIDERS: PCP Physician Assistant; Visit Provider Physician Assistant
DX: Z11.4 Encounter for screening for human immunodeficiency virus [HIV] (principal); I10 Essential (primary) hypertension; E03.9 Hypothyroidism, unspecified; E78.00 Pure hypercholesterolemia, unspecified; Z79.899 Other long term (current) drug therapy
CPT/HCPCS: 80053; 80061; 84443; 85025; 87389

== ENCOUNTER → 2025-02-15 07:45 | Outpatient (CLI) | payer OTHER, SELFPAY ==
[2025-02-17 14:36] LABS: Fecal Immunochemical Test Negative (Negative)
== END ==
PROVIDERS: PCP Physician Assistant; Visit Provider Physician Assistant
DX: Z12.11 Encounter for screening for malignant neoplasm of colon (principal)
CPT/HCPCS: 82274

== ENCOUNTER → 2025-02-16 12:33 | Outpatient (CLI) | payer OTHER, SELFPAY ==
--- NOTE | 2025-02-16 12:34 | DI.MG.S_ITS ---
MM screening mammo BI: 02/16/2025. BI-RADS: 1 CLINICAL: 59-year old female for bilateral screening mammogram. Tyrer-Cuzick lifetime risk of 8.0%. No personal or first-degree family history of breast cancer. The patient had a prior left breast biopsy. PRIOR EXAMS 01/07/2024, 06/26/2023, 12/27/2022, 11/29/2022, 06/16/2021, 05/10/2021. MAMMOGRAPHY TECHNIQUE: 2D and 3D (tomosynthesis) digital mammographic views obtained, with additional images as needed for full coverage. Current study was also evaluated with a Computer Aided Detection (CAD) system. DENSITY B. There are scattered areas of fibroglandular density. MAMMOGRAPHY FINDINGS Bilateral: No suspicious mass, asymmetry, microcalcification, or other abnormality seen. IMPRESSION: * No evidence of malignancy. RECOMMENDATIONS Bilateral * Annual screening mammography. OVERALL ASSESSMENT CATEGORY BI-RADS-1: Negative. The [employer] recommends annual screening mammography beginning at age 40 for women with average risk of breast cancer. ELECTRONICALLY SIGNED: Chuy Nieves M.D. on 02/16/2025 at 02:40:55 PM PT Interpreting Station ID: [id number]
--- NOTE | 2025-02-16 12:34 | DI.RAD.S_ITS ---
PROCEDURE: XR DEXA AXIAL SKELETON INDICATIONS: bone density screening COMPARISON: None. FINDINGS: Lumbar Spine: Bone mineral density 0.932 g/cm2, T score -1.0. Left Femoral Neck: Bone mineral density 0.571 g/cm2, T score -2.5. Left Hip: Bone mineral density 0.706 g/cm2, T score -1.9. Fracture Risk Calculation (when applicable): 10-year fracture risk of a major osteoporotic fracture 34 percent and of a hip fracture 3.7 percent. (T score greater or equal to -1.0 to: NORMAL) (T score from -1.1 to -2.4: OSTEOPENIA) (T score less than or equal to -2.5: OSTEOPOROSIS) IMPRESSION: Osteoporosis---recommend repeat DEXA in 2 years or less for reassessment of response to treatment. Follow-up guidelines as follows: Osteoporosis: Consider a repeat DEXA and Vertebral Fracture Assessment (VFA) exam in 2 years or sooner if medically necessary, to reassess this patient's status. Osteopenia: Consider a repeat DEXA in 2-3 years to reassess this patient's status, or if there is a new clinical indication. Normal: Consider a repeat DEXA in 5 years or sooner, or if there is a new clinical indication. All treatment decisions require clinical judgment and consideration of individual patient factors, including patient preferences, comorbidities, previous drug use, risk factors not captured in the FRAX model (e.g., frailty, falls, vitamin D deficiency, increased bone turnover, interval significant decline in bone density ) and possible under- or over-estimation of fracture risk by FRAX. In addition, the NOF Guide recommends that FDA-approved medical therapies be considered in postmenopausal women and men age >= 50 years with a: * Hip or vertebral (clinical or morphometric) fracture * T-score of <=-2.5 at the spine or hip * Ten-year fracture probability by FRAX of >= 3% for hip fracture or >=20% for major osteoporotic fracture. Dictated by: Daljit Sandoval M.D. on 02/16/2025 at 16:41 Approved by: Daljit Sandoval M.D. on 02/16/2025 at 16:42
== END ==
PROVIDERS: PCP Physician Assistant; Referring Provider Physician Assistant; Visit Provider Physician Assistant
DX: Z12.31 Encounter for screening mammogram for malignant neoplasm of breast (principal); M81.0 Age-related osteoporosis without current pathological fracture; Z78.0 Asymptomatic menopausal state
CPT/HCPCS: 77063; 77067; 77080

== ENCOUNTER → 2025-11-15 11:03 | Outpatient (CLI) | payer OTHER, SELFPAY ==
--- NOTE | 2025-11-15 11:05 | DI.MRI.S_ITS ---
PROCEDURE: MR SHOULDER RT W CON INDICATIONS: Strain of muscles, rt shoulder TECHNIQUE: After the administration of 12 mL of dilute intra-articular Gadolinium contrast, oblique coronal T1 and T2 spin echo with fat saturation, oblique sagittal T1 spin echo with and without fat saturation, oblique sagittal T2 fast spin echo with fat saturation, axial T1 spin echo with fat saturation through the shoulder. COMPARISON: None. FINDINGS: Image quality: Excellent. Rotator cuff: Low-grade bursal surface partial-thickness tear involving anterior to mid fibers of distal supraspinatus at its insertion on humeral head is seen extending to musculotendinous junction. Distal infraspinatus and subscapularis tendinosis. No full-thickness rotator cuff tendon rupture. No significant rotator cuff muscle atrophy on sagittal images. Bones and bursae: No bone marrow contusions or fractures. Lzrw-fm-[id number] acromioclavicular joint osteoarthritic changes are seen with joint space narrowing and downward osteophyte formation depressing the musculotendinous junction of supraspinatus. Type 2 acromion without an os acromiale. Capsule and soft tissues: T2 hyperintense signal and contrast extension involving superior anterior glenoid labrum suggestive of subtle superior anterior glenoid labral tear. The glenohumeral ligaments appear intact. Tendinosis and low-grade partial-thickness tear involving proximal long head of biceps is seen. IMPRESSION: 1. Low-grade bursal surface partial-thickness tear involving anterior to mid fibers of distal supraspinatus extending to musculotendinous junction. Distal infraspinatus and subscapularis tendinosis. No full-thickness rotator cuff tendon rupture. No significant rotator cuff muscle atrophy. 2. Dgmt-rp-uyzralwl acromioclavicular joint osteoarthritis. No fracture or dislocation. No intra-articular loose bodies. 3. Suggestion of subtle superior anterior glenoid labral tear. 4. Tendinosis and low-grade partial-thickness tear involving proximal long head of biceps tendon near its proximal insertion. Dictated by: Pj Walker M.D. on 11/15/2025 at 13:36 Approved by: Pj Walker M.D. on 11/15/2025 at 13:41
--- NOTE | 2025-11-15 11:05 | DI.RAD.S_ITS ---
PROCEDURE: FL ARTHROGRAM SHOULDER RT INDICATIONS: Strain of muscles, rt shoulder COMPARISON: None. TECHNIQUE: The indications, alternatives, benefits, risks, and complications of the procedure were explained to the patient. Written informed consent was obtained and placed in the chart. The shoulder was examined fluoroscopically and a site for needle placement chosen for entry into the glenohumeral joint from an anterior approach. The skin was prepped and draped in a sterile fashion, and 1% lidocaine infiltrated from skin down to joint capsule. A spinal needle was inserted into the glenohumeral joint, and a small amount of iodinated contrast media injected to confirm intra-articular placement of the needle tip. This was followed by approximately 12 mL dilute solution of a gadolinium containing MR contrast agent. The needle was removed and a dressing was applied. The patient was given postprocedural instructions and sent to the MR suite for MR imaging. FINDINGS: A single fluoroscopic spot image demonstrates intra-articular location of injected iodinated contrast. IMPRESSION: Successful fluoroscopically guided administration of dilute Gadolinium solution into the shoulder joint for MR arthrogram. Dictated by: Josh Arias M.D. on 11/15/2025 at 16:48 Approved by: Josh Arias M.D. on 11/15/2025 at 16:48
[2025-11-15] MEDS: SODIUM CHLORIDE 0.9 % 20 ML VIAL IV (12:35)
[2025-11-15] MEDS: LIDOCAINE 1% 20 ML INJ (12:35)
== END ==
LOC: RAD 11:04
PROVIDERS: PCP Physician Assistant; Referring Provider Orthopaedic Surgery Sports Medicine; Visit Provider Orthopaedic Surgery Sports Medicine
DX: S46.011A Strain of muscle(s) and tendon(s) of the rotator cuff of right shoulder, initial encounter (principal); S46.111A Strain of muscle, fascia and tendon of long head of biceps, right arm, initial encounter; M19.011 Primary osteoarthritis, right shoulder; X50.0XXA Overexertion from strenuous movement or load, initial encounter
CPT/HCPCS: 23350; 73040; 73222; A9579; Q9967